=== PATIENT | female | born 1985 | race Caucasian/White ===

== ENCOUNTER 2018-03-01 16:38 | Emergency (ER) | payer OTHER | END 2018-03-01 19:17 | disposition home or self-care (01) | LOC: FTE 16:38 | DX: O20.9 Hemorrhage in early pregnancy, unspecified (principal); I10 Essential (primary) hypertension; Z3A.01 Less than 8 weeks gestation of pregnancy | CPT/HCPCS: 36415; 76801; 76817; 84702; 86900; 86901; 99284-25 ==